=== PATIENT | female | born 1980 | race American Indian/Alaskan Native ===

== ENCOUNTER 2017-03-26 13:10 | Inpatient (IN) | payer OTHER ==
[2017-03-26 16:11] LABS: Hematocrit 45.5 % (30.3-42.9); Hemoglobin 14.3 gm/dl (10.1-14.3); Mean Corpuscular HGB Conc 31 % (30-34); Mean Corpuscular Hemoglobin 24 pg (28-32); Mean Corpuscular Volume 77 fl (79-97); Red Blood Count 5.93 M/mm3 (3.65-5.03); Red Cell Distribution Width 14.4 % (13.2-15.2)
[2017-03-26 16:13] LABS: Bacteria,Urine 2+ /HPF (Negative); Bilirubin,Urine NEG (Negative); Blood,Urine NEG (Negative); Color,Urine Yellow (Yellow); Mucus,Urine FEW /HPF; Nitrite,Urine NEG (Negative); Protein,Urine <15 mg/dL mg/dL (Negative); Urobilinogen,Urine < 2.0 mg/dL (<2.0)
[2017-03-26 16:21] LABS: BUN/Creatinine Ratio 16; Blood Urea Nitrogen 13 mg/dL (7-17); Calcium 9.4 mg/dL (8.4-10.2); Hemolysis Index 64
[2017-03-26 19:20] LABS: Basophils % (Manual) 0 % (0.0-1.8); Hypochromasia 1+; Platelet Estimate Consistent w Auto; Total Cells Counted 100
[2017-03-26 19:27] LABS: Platelet Count 182 K/mm3 (140-440)
[2017-03-27 01:59] LABS: Amorphous Crystals,Urine Few; Bilirubin,Urine NEG (Negative); Blood,Urine NEG (Negative); Color,Urine Yellow (Yellow); Mucus,Urine 1+ /HPF; Nitrite,Urine NEG (Negative); Protein,Urine <15 mg/dL mg/dL (Negative); Urobilinogen,Urine < 2.0 mg/dL (<2.0)
[2017-03-27 02:05] LABS: Amphetamine Screen,Urine PRESUMPTIVE NEGATIVE; Benzodiazepines Screen,Urine PRESUMPTIVE NEGATIVE; Cannabinoid Screen,Urine PRESUMPTIVE NEGATIVE; Cocaine Screen,Urine PRESUMPTIVE NEGATIVE; Methadone Screen,Urine PRESUMPTIVE NEGATIVE; Opiate Screen,Urine PRESUMPTIVE NEGATIVE
--- NOTE | 2017-03-27 02:08 | Cat Scan Report ---
FINAL REPORT EXAM: CT HEAD/BRAIN WO CON HISTORY: AMS TECHNIQUE: Routine axial imaging was obtained of the brain without IV contrast. FINDINGS: The ventricular system is appropriate in size and is symmetric. There is no evidence of acute stroke or hemorrhage. The basal cisterns appear normal. The visualized sinuses are clear. The mastoid air cells are well pneumatized. The calvarium appears intact. IMPRESSION: Within normal limits
[2017-03-27 02:27] LABS: Alanine Aminotransferase 28 units/L (7-56); Albumin 3.8 g/dL (3.9-5)
[2017-03-27 02:43] LABS: Bilirubin,Direct < 0.2 mg/dL (0-0.2)
--- NOTE | 2017-03-27 02:53 | Emergency Department Report ---
ED Seizure HPI - General Chief Complaint: Syncope Stated Complaint: FAINTED/LEG WEAKNESS Time Seen by Provider: 03/27/17 01:21 Source: patient, EMS Mode of arrival: Ambulatory Limitations: No Limitations - History of Present Illness Initial Comments: 36 YO female TOLD BY HER CO-WORKERS THAT SHE HAD A SEIZURE. THE SEIZURE WAS GENERALIZED MYOCLONIC IN NATURE. PT SAID SHE FELT HERSELF BEGIN TO SHAKE BUT DOES NOT REMEMBER ANYTHING ELSE. SHE HAS A H/O MIGRAINE HEADACHES A BUT NO SEIZURE HISTORY AND WS PUT ON TOPAMAX AND CLONIDINE TWO WEEKS AGO BY AN URGENT CRE DOCTOR. - Related Data Allergies Allergy/AdvReac Type Severity Reaction Status Date / Time No Known Allergies Allergy Unverified 03/26/17 14:57 ED Review of Systems ROS: Stated complaint: FAINTED/LEG WEAKNESS Other details as noted in HPI Constitutional: denies: chills, fever Eyes: denies: eye pain, eye discharge, vision change ENT: denies: ear pain, throat pain Respiratory: denies: cough, shortness of breath, wheezing Cardiovascular: denies: chest pain, palpitations Endocrine: no symptoms reported Gastrointestinal: denies: abdominal pain, nausea, diarrhea Genitourinary: denies: urgency, dysuria, discharge Musculoskeletal: denies: back pain, joint swelling, arthralgia Skin: denies: rash, lesions Neurological: headache, other (DIZZINESS). denies: weakness, paresthesias Psychiatric: denies: anxiety, depression Hematological/Lymphatic: denies: easy bleeding, easy bruising ED Past Medical Hx - Past Medical History Previous Medical History?: Yes Hx Hypertension: Yes (with ) Hx Headaches / Migraines: Yes Additional medical history: endometriosis - Surgical History Past Surgical History?: Yes Hx Cholecystectomy: Yes Additional Surgical History: Hysterectomy, Umbilical hernia repair, Left OOPHERECTOMY - Family History Family history: hypertension - Social History Smoking Status: Never Smoker Substance Use Type: Prescribed ED Physical Exam - General Limitations: No Limitations General appearance: alert, in no apparent distress - Head Head exam: Present: atraumatic, normocephalic - Eye Eye exam: Present: normal appearance, EOMI - ENT ENT exam: Present: mucous membranes moist - Neck Neck exam: Present: normal inspection - Respiratory Respiratory exam: Present: normal lung sounds bilaterally. Absent: respiratory distress, wheezes, rales, stridor - Cardiovascular Cardiovascular Exam: Present: regular rate, normal rhythm. Absent: systolic murmur, diastolic murmur, rubs, gallop - GI/Abdominal GI/Abdominal exam: Present: soft, normal bowel sounds - Rectal Rectal exam: Present: deferred - Extremities Exam Extremities exam: Present: normal inspection - Back Exam Back exam: Present: normal inspection, full ROM - Neurological Exam Neurological exam: Present: alert, oriented X3, CN II-XII intact - Psychiatric Psychiatric exam: Present: normal affect, normal mood - Skin Skin exam: Present: warm, dry, intact, normal color. Absent: rash ED Course Vital Signs 03/26/17 14:57 Temperature 98 F Pulse Rate 70 Respiratory 18 Rate Blood Pressure 132/92 O2 Sat by Pulse 100 Oximetry ED Medical Decision Making - Lab Data Result diagrams: 03/26/17 15:33 03/26/17 15:33 - Radiology Data Radiology results: report reviewed (CT HEAD:NEGATIVE FOR ACUTE) Critical care attestation.: If time is entered above; I have spent that time in minutes in the direct care of this critically ill patient, excluding procedure time. ED Disposition Clinical Impression: New onset seizure Disposition: -09 OP ADMIT IP TO THIS HOSP Is pt being admited?: Yes Does the pt Need Aspirin: No Condition: Stable Referrals: APRIL ALICEA MD [Primary Care Provider] - 3-5 Days Time of Disposition: 05:23 (DR DIEGO MONTES AND CASE REVIEWED AND SHE WILL ADMIT THE PT TO THE HOSPITAL)
[2017-03-27] MEDS ORDERED: NACL 0.9% 1000 ML 1,000 ML ONE (05:09)
[2017-03-27] MEDS ORDERED: NACL 0.9% 1000 ML 1,000 ML IV ONE (05:15)
[2017-03-27] MEDS ORDERED: KEPPRA 1,000 MG in NACL 0.9% 100 ML IV SCH ×2 (05:17→18:00)
[2017-03-27] MEDS ORDERED: KEPPRA 1,000 MG/NS 0.75% 100ML 1,000 MG/100 ML BAG IV ONE (06:00)
--- NOTE | 2017-03-27 11:21 | History and Physical Report ---
History of Present Illness Date of examination: 03/27/17 Date of admission: 03/27/17 06:50 Chief complaint: Cc New onset seizures.couple of hours ago. History of present illness: History of Present Illness: 36 y/o AAF with hx of HTN and Migraine apparently had gen seizures lasting for 30 seconds .The seizure was generalized myoclonic in nature.No tonic clonic features. Patient apparently was shaking and unresponsive.No past hx of seizures.Was recently put on Topamax for Migraines and clonidine for HTn.By urgent care physician. No fever or chills.No sob. Complaints of RLE weakness.Sudden onset.No RUE weakness. Past Medical History Previous Medical History?: Yes Hx Hypertension: Yes (with ) Hx Headaches / Migraines: Yes Additional medical history: endometriosis Surgical History Past Surgical History?: Yes Hx Cholecystectomy: Yes Additional Surgical History: Hysterectomy, Umbilical hernia repair, Left OOPHERECTOMY Family History Family history: hypertension Social History Smoking Status: Never Smoker Substance Use Type: Prescribed Review of Systems Stated complaint: FAINTED/LEG WEAKNESS Other details as noted in HPI Constitutional: denies: chills, fever Eyes: denies: eye pain, eye discharge, vision change ENT: denies: ear pain, throat pain Respiratory: denies: cough, shortness of breath, wheezing Cardiovascular: denies: chest pain, palpitations Endocrine: no symptoms reported Gastrointestinal: denies: abdominal pain, nausea, diarrhea Genitourinary: denies: urgency, dysuria, discharge Musculoskeletal: denies: back pain, joint swelling, arthralgia Skin: denies: rash, lesions Neurological: headache, other (DIZZINESS). denies: weakness, paresthesias Psychiatric: denies: anxiety, depression Hematological/Lymphatic: denies: easy bleeding, easy bruising Past History Past Medical History: hypertension, migraines Medications and Allergies Allergies Allergy/AdvReac Type Severity Reaction Status Date / Time No Known Allergies Allergy Unverified 03/26/17 14:57 Home Medications Medication Instructions Recorded Confirmed Last Taken Type Topiramate [Topamax] 25 mg PO BID 03/27/17 03/27/17 1 Day Ago History ~03/26/17 cloNIDine [Catapres] 0.2 mg PO BID 03/27/17 03/27/17 1 Day Ago History ~03/26/17 Active Meds: Active Medications Levetiracetam (Keppra 1,000 Mg/Ns 0.75% 100ml) 1,000 mg in 100 mls @ 400 mls/ hr IV Q12H NATASHA Lorazepam (Ativan) 1 mg IV Q4H PRN PRN Reason: Seizures Exam - Constitutional Vitals: Temp Pulse Resp BP Pulse Ox 98.2 F 128 H 19 167/89 97 03/27/17 07:55 03/27/17 09:41 03/27/17 09:41 03/27/17 09:41 03/27/17 09:41 General appearance: Present: no acute distress, well-nourished - EENT Eyes: Present: PERRL ENT: hearing intact, clear oral mucosa - Neck Neck: Present: supple, normal ROM - Respiratory Respiratory effort: normal Respiratory: bilateral: CTA - Cardiovascular Heart rate: 70 Rhythm: regular Heart Sounds: Present: S1 & S2. Absent: rub, click - Extremities Extremities: no ischemia, pulses intact, pulses symmetrical, No edema Peripheral Pulses: within normal limits - Abdominal General gastrointestinal: Present: soft, non-tender, non-distended, normal bowel sounds Female genitourinary: Present: normal - Rectal Rectal Exam: deferred - Integumentary Integumentary: Present: clear, warm, dry - Musculoskeletal Musculoskeletal: gait normal, strength equal bilaterally - Psychiatric Psychiatric: appropriate mood/affect, intact judgment & insight - Neurologic Neurologic: CNII-XII intact, moves all extremities - Allied Health Allied health notes reviewed: nursing, case management Results - Labs CBC & Chem 7: 03/28/17 07:40 03/28/17 07:40 Labs: Laboratory Last Values WBC 14.8 K/mm3 (4.5-11.0) H 03/26/17 15:33 RBC 5.93 M/mm3 (3.65-5.03) H 03/26/17 15:33 Hgb 14.3 gm/dl (10.1-14.3) 03/26/17 15:33 Hct 45.5 % (30.3-42.9) H 03/26/17 15:33 MCV 77 fl (79-97) L 03/26/17 15:33 MCH 24 pg (28-32) L 03/26/17 15:33 MCHC 31 % (30-34) 03/26/17 15:33 RDW 14.4 % (13.2-15.2) 03/26/17 15:33 Plt Count 182 K/mm3 (140-440) 03/26/17 15:33 Add Manual Diff Complete 03/26/17 15:33 Total Counted 100 03/26/17 15:33 Seg Neuts % (Manual) 71.0 % (40.0-70.0) H 03/26/17 15:33 Band Neutrophils % 0 % 03/26/17 15:33 Lymphocytes % (Manual) 23.0 % (13.4-35.0) 03/26/17 15:33 Reactive Lymphs % (Man) 0 % 03/26/17 15:33 Monocytes % (Manual) 4.0 % (0.0-7.3) 03/26/17 15:33 Eosinophils % (Manual) 2.0 % (0.0-4.3) 03/26/17 15:33 Basophils % (Manual) 0 % (0.0-1.8) 03/26/17 15:33 Metamyelocytes % 0 % 03/26/17 15:33 Myelocytes % 0 % 03/26/17 15:33 Promyelocytes % 0 % 03/26/17 15:33 Blast Cells % 0 % 03/26/17 15:33 Nucleated RBC % Not Reportable 03/26/17 15:33 Seg Neutrophils # Man 0.0 K/mm3 (1.8-7.7) L 03/26/17 15:33 Band Neutrophils # 0.0 K/mm3 03/26/17 15:33 Lymphocytes # (Manual) 0.0 K/mm3 (1.2-5.4) L 03/26/17 15:33 Abs React Lymphs (Man) 0.0 K/mm3 03/26/17 15:33 Monocytes # (Manual) 0.0 K/mm3 (0.0-0.8) 03/26/17 15:33 Eosinophils # (Manual) 0.0 K/mm3 (0.0-0.4) 03/26/17 15:33 Basophils # (Manual) 0.0 K/mm3 (0.0-0.1) 03/26/17 15:33 Metamyelocytes # 0.0 K/mm3 03/26/17 15:33 Myelocytes # 0.0 K/mm3 03/26/17 15:33 Promyelocytes # 0.0 K/mm3 03/26/17 15:33 Blast Cells # 0.0 K/mm3 03/26/17 15:33 WBC Morphology Not Reportable 03/26/17 15:33 Hypersegmented Neuts Not Reportable 03/26/17 15:33 Hyposegmented Neuts Not Reportable 03/26/17 15:33 Hypogranular Neuts Not Reportable 03/26/17 15:33 Smudge Cells Not Reportable 03/26/17 15:33 Toxic Granulation Not Reportable 03/26/17 15:33 Toxic Vacuolation Not Reportable 03/26/17 15:33 Dohle Bodies Not Reportable 03/26/17 15:33 Pelger-Huet Anomaly Not Reportable 03/26/17 15:33 Andrew Rods Not Reportable 03/26/17 15:33 Platelet Estimate Consistent w auto 03/26/17 15:33 Clumped Platelets Not Reportable 03/26/17 15:33 Plt Clumps, EDTA Not Reportable 03/26/17 15:33 Large Platelets Not Reportable 03/26/17 15:33 Giant Platelets Not Reportable 03/26/17 15:33 Platelet Satelliting Not Reportable 03/26/17 15:33 Plt Morphology Comment Not Reportable 03/26/17 15:33 RBC Morphology Not Reportable 03/26/17 15:33 Dimorphic RBCs Not Reportable 03/26/17 15:33 Polychromasia Not Reportable 03/26/17 15:33 Hypochromasia 1+ 03/26/17 15:33 Poikilocytosis Not Reportable 03/26/17 15:33 Anisocytosis Not Reportable 03/26/17 15:33 Microcytosis Not Reportable 03/26/17 15:33 Macrocytosis Not Reportable 03/26/17 15:33 Spherocytes Not Reportable 03/26/17 15:33 Pappenheimer Bodies Not Reportable 03/26/17 15:33 Sickle Cells Not Reportable 03/26/17 15:33 Target Cells Not Reportable 03/26/17 15:33 Tear Drop Cells Not Reportable 03/26/17 15:33 Ovalocytes Not Reportable 03/26/17 15:33 Helmet Cells Not Reportable 01/03/18 15:33 [place] Bodies Not Reportable 03/26/17 15:33 [place] Rings Not Reportable 03/26/17 15:33 Roxanna Cells Not Reportable 03/26/17 15:33 Bite Cells Not Reportable 03/26/17 15:33 Crenated Cell Not Reportable 03/26/17 15:33 Elliptocytes Not Reportable 03/26/17 15:33 Acanthocytes (Spur) Not Reportable 03/26/17 15:33 Rouleaux Not Reportable 03/26/17 15:33 Hemoglobin C Crystals Not Reportable 03/26/17 15:33 Schistocytes Not Reportable 03/26/17 15:33 Malaria parasites Not Reportable 03/26/17 15:33 Ricki Bodies Not Reportable 03/26/17 15:33 Hem Pathologist Commnt No 03/26/17 15:33 Sodium 137 mmol/L (137-145) 03/26/17 15:33 Potassium 4.8 mmol/L (3.6-5.0) 03/26/17 15:33 Chloride 102.5 mmol/L (98-107) 03/26/17 15:33 Carbon Dioxide 18 mmol/L (22-30) L 03/26/17 15:33 Anion Gap 21 mmol/L 03/26/17 15:33 BUN 13 mg/dL (7-17) 03/26/17 15:33 Creatinine 0.8 mg/dL (0.7-1.2) 03/26/17 15:33 Estimated GFR > 60 ml/min 03/26/17 15:33 BUN/Creatinine Ratio 16 % 03/26/17 15:33 Glucose 98 mg/dL (65-100) 03/26/17 15:33 Calcium 9.4 mg/dL (8.4-10.2) 03/26/17 15:33 Total Bilirubin 0.50 mg/dL (0.1-1.2) 03/27/17 01:45 Direct Bilirubin < 0.2 mg/dL (0-0.2) 03/27/17 01:45 Indirect Bilirubin 0.3 mg/dL 03/27/17 01:45 AST 18 units/L (5-40) 03/27/17 01:45 ALT 28 units/L (7-56) 03/27/17 01:45 Alkaline Phosphatase 116 units/L (35-129) 03/27/17 01:45 Ammonia 51.0 umol/L (25-60) 03/27/17 01:45 Troponin T < 0.010 ng/mL (0.00-0.029) 03/26/17 15:33 Total Protein 8.1 g/dL (6.3-8.2) 03/27/17 01:45 Albumin 3.8 g/dL (3.9-5) L 03/27/17 01:45 Albumin/Globulin Ratio 0.9 % 03/27/17 01:45 Urine Color Yellow (Yellow) 03/27/17 01:44 Urine Turbidity Clear (Clear) 03/27/17 01:44 Urine pH 5.0 (5.0-7.0) 03/27/17 01:44 Ur Specific [place] 1.023 (1.003-1.030) 03/27/17 01:44 Urine Protein <15 mg/dl mg/dL (Negative) 03/27/17 01:44 Urine Glucose (UA) Neg mg/dL (Negative) 03/27/17 01:44 Urine Ketones Neg mg/dL (Negative) 03/27/17 01:44 Urine Blood Neg (Negative) 03/27/17 01:44 Urine Nitrite Neg (Negative) 03/27/17 01:44 Urine Bilirubin Neg (Negative) 03/27/17 01:44 Urine Urobilinogen < 2.0 mg/dL (<2.0) 03/27/17 01:44 Ur Leukocyte Esterase Neg (Negative) 03/27/17 01:44 Urine WBC (Auto) 4.0 /HPF (0.0-6.0) 03/27/17 01:44 Urine RBC (Auto) 1.0 /HPF (0.0-6.0) 03/27/17 01:44 U Epithel Cells (Auto) 4.0 /HPF (0-13.0) 03/27/17 01:44 Urine Bacteria (Auto) 2+ /HPF (Negative) 03/26/17 15:35 Amorphous Crystals Few 03/27/17 01:44 Urine Mucus 1+ /HPF 03/27/17 01:44 Urine Opiates Screen Presumptive negative 03/27/17 01:44 Urine Methadone Screen Presumptive negative 03/27/17 01:44 Ur Barbiturates Screen Presumptive negative 03/27/17 01:44 Ur Phencyclidine Scrn Presumptive negative 03/27/17 01:44 Ur Amphetamines Screen Presumptive negative 03/27/17 01:44 U Benzodiazepines Scrn Presumptive negative 03/27/17 01:44 Urine Cocaine Screen Presumptive negative 03/27/17 01:44 U Marijuana (THC) Screen Presumptive negative 03/27/17 01:44 Drugs of Abuse Note Disclamer 03/27/17 01:44 - Imaging and Cardiology EKG: report reviewed (NSR non specific ST t wave changes) Assessment and Plan Advance Directives: Yes (Full code) VTE prophylaxis?: Chemical Plan of care discussed with patient/family: Yes - Patient Problems (1) New onset seizure Current Visit: Yes Status: Acute Plan to address problem: Sterted on IV keppra Will transition to Po Keppra EEG ordered Neuro consult ordered (2) Weakness of lower extremity Current Visit: Yes Status: Acute Qualifiers: Laterality: right Qualified Code(s): R29.898 - Other symptoms and signs involving the musculoskeletal system Plan to address problem: Stroke w/u initiated (3) HTN (hypertension) Current Visit: Yes Status: Chronic Qualifiers: Hypertension type: essential hypertension Qualified Code(s): I10 - Essential (primary) hypertension Plan to address problem: cont clonidine (4) Migraine Current Visit: Yes Status: Inactive Qualifiers: Intractability: not intractable Plan to address problem: Cont Topamax (5) DVT prophylaxis Current Visit: Yes Status: Acute Plan to address problem: On Lovenox
[2017-03-27] MEDS ORDERED: MILK OF MAGNESIA PO PRN (11:22)
[2017-03-27] MEDS ORDERED: DULCOLAX PR PRN (11:22)
[2017-03-27] MEDS ORDERED: TYLENOL PO PRN (11:22)
[2017-03-27] MEDS: PEPCID PO SCH ×2 (13:42→22:34)
[2017-03-27] MEDS: D5NS 1,000 ML IV SCH (13:43)
[2017-03-27] MEDS: ATIVAN IV PRN ×2 (13:45→20:27)
[2017-03-27] MEDS: KEPPRA 1,000 MG/NS 0.75% 100ML 1,000 MG/100 ML BAG IV SCH (17:27)
--- NOTE | 2017-03-27 17:49 | Consultation ---
History of Present Illness Consult date: 03/27/17 History of present illness: I have carefully reviewed the CT odf the head and it is normal plan to check EEG agree with use of keppra interesting hx that she had severe leg weakness ( ? etiology) spoke to family and went over all rec's for the patient Medications and Allergies Allergies Allergy/AdvReac Type Severity Reaction Status Date / Time No Known Allergies Allergy Unverified 03/26/17 14:57 Home Medications Medication Instructions Recorded Confirmed Last Taken Type Topiramate [Topamax] 25 mg PO BID 03/27/17 03/27/17 1 Day Ago History ~03/26/17 cloNIDine [Catapres] 0.2 mg PO BID 03/27/17 03/27/17 1 Day Ago History ~03/26/17 Active Meds: Active Medications Acetaminophen (Tylenol) 650 mg PO Q4H PRN PRN Reason: Pain MILD(1-3)/Fever >100.5/GILBERT Bisacodyl (Dulcolax) 10 mg CO QDAY PRN PRN Reason: Constipation unrelieved by MOM Famotidine (Pepcid) 20 mg PO BID [facility] Last Admin: 03/27/17 13:42 Dose: 20 mg Levetiracetam (Keppra 1,000 Mg/Ns 0.75% 100ml) 1,000 mg in 100 mls @ 400 mls/ hr IV Q12H [facility] Last Admin: 03/27/17 17:27 Dose: 400 mls/hr Dextrose/Sodium Chloride (D5ns) 1,000 mls @ 100 mls/hr IV DIRECT [facility] Last Admin: 03/27/17 13:43 Dose: 100 mls/hr Lorazepam (Ativan) 1 mg IV Q4H PRN PRN Reason: Seizures Last Admin: 03/27/17 13:45 Dose: 1 mg Magnesium Hydroxide (Milk Of Magnesia) 30 ml PO Q4H PRN PRN Reason: Constipation Morphine Sulfate (Morphine) 4 mg IV Q4H PRN PRN Reason: Pain , Severe (7-10) Ondansetron HCl (Zofran) 4 mg IV Q8H PRN PRN Reason: N/V unrelieved by Reglan Oxycodone/Acetaminophen (Percocet 5/325) 1 tab PO Q6H PRN PRN Reason: Pain, Moderate (4-6) Zolpidem Tartrate (Ambien) 5 mg PO QHS PRN PRN Reason: Insomnia Physical Examination - Vital Signs Vital Signs: Vital Signs Temp Pulse Resp BP Pulse Ox 98 F 70 18 132/92 100 03/26/17 14:57 03/26/17 14:57 03/26/17 14:57 03/26/17 14:57 03/26/17 14:57 Results - Laboratory Findings CBC and BMP: 03/26/17 15:33 03/26/17 15:33 Abnormal Lab Findings: Abnormal Labs 03/26/17 03/26/17 03/27/17 15:33 15:33 01:45 WBC 14.8 H RBC 5.93 H Hct 45.5 H MCV 77 L MCH 24 L Seg Neuts % (Manual) 71.0 H Seg Neutrophils # Man 0.0 L Lymphocytes # (Manual) 0.0 L Carbon Dioxide 18 L Albumin 3.8 L
[2017-03-27 18:46] LABS: Magnesium 1.8 mg/dL (1.7-2.3)
[2017-03-27] MEDS: AMBIEN PO PRN (22:38)
[2017-03-27] MEDS ORDERED: KEPPRA 500 MG/NS 0.82% 100 ML 500 MG/100 ML BAG IV ONE (23:30)
[2017-03-28] MEDS: D5NS 1,000 ML IV SCH ×2 (00:44→20:34)
--- NOTE | 2017-03-28 02:06 | Consultation ---
HISTORY OF PRESENT ILLNESS: This is a 36-year-old black female who presents to [facility] with a new onset of seizures. She had at least for 2-3 weeks of difficulty sleeping. She would wake up at night, could not get a full night sleep, was taking Topamax during this period for her migraine headaches, but this was not having very much effect on her migraines at all. She said it is still be very debilitating and would not go away. She has also been having according to family members weakness of her legs, difficulty walking, and tremulousness when she attempts to stand up and move about. She denies any prior history of seizures, head injury, trauma. She has not had an extensive workup for migraine headaches such as MRI scan since admission, she has had no further seizures, but she is on levetiracetam 1000 mg IV b.i.d. I reviewed her labs. They were all normal. I reviewed her CT scan of the head. It is entirely unremarkable. PLAN: At this point to get an MRI, EEG. I agree with using [facility]. I advised the patient with weakness in her legs is simply should be worked out. She could have a myopathy, could have some other electrolyte imbalance, vitamin deficiency. This will be further looked into as to etiology. It is remotely possible of course that she has a condition like multiple sclerosis, which is responsible for all of the above symptoms. JOB# [id number] KIN/TATO
[2017-03-28] MEDS: PERCOCET 5/325 PO PRN ×2 (05:31→23:06)
[2017-03-28] MEDS: KEPPRA 1,000 MG/NS 0.75% 100ML 1,000 MG/100 ML BAG IV SCH ×2 (05:31→18:16)
[2017-03-28 09:03] LABS: Eosinophils # (Auto) 0.2 K/mm3 (0.0-0.4); Eosinophils % (Auto) 2.4 % (0.0-4.3); Monocytes # (Auto) 0.6 K/mm3 (0.0-0.8); Monocytes % (Auto) 6.1 % (0.0-7.3)
[2017-03-28 09:30] LABS: Alanine Aminotransferase 19 units/L (7-56); Albumin 3.3 g/dL (3.9-5); BUN/Creatinine Ratio 13; Blood Urea Nitrogen 10 mg/dL (7-17); Calcium 8.1 mg/dL (8.4-10.2); Hemolysis Index 3
[2017-03-28 09:40] LABS: Hematocrit 38.6 % (30.3-42.9)
[2017-03-28 09:42] LABS: Lymphocytes % (Auto) 30.5 % (13.4-35.0); Mean Corpuscular Volume 77 fl (79-97)
[2017-03-28 09:43] LABS: Basophils % (Auto) 0.5 % (0.0-1.8); Lymphocytes # (Auto) 2.7 K/mm3 (1.2-5.4); Mean Corpuscular HGB Conc 31 % (30-34); Mean Corpuscular Hemoglobin 24 pg (28-32); Red Cell Distribution Width 14.5 % (13.2-15.2)
[2017-03-28] MEDS: PEPCID PO SCH ×2 (10:25→23:02)
[2017-03-28 10:26] LABS: Platelet Count 232 K/mm3 (140-440)
[2017-03-28] MEDS: ATIVAN IV PRN (12:26)
--- NOTE | 2017-03-28 15:30 | Progress Note ---
Assessment and Plan - Patient Problems (1) New onset seizure Current Visit: Yes Status: Acute Plan to address problem: Sterted on IV keppra Will transition to Po Keppra EEG ordered Neuro consult ordered (2) Weakness of lower extremity Current Visit: Yes Status: Acute Qualifiers: Laterality: right Qualified Code(s): R29.898 - Other symptoms and signs involving the musculoskeletal system Plan to address problem: Stroke w/u initiated (3) HTN (hypertension) Current Visit: Yes Status: Chronic Qualifiers: Hypertension type: essential hypertension Qualified Code(s): I10 - Essential (primary) hypertension Plan to address problem: cont clonidine (4) Migraine Current Visit: Yes Status: Inactive Qualifiers: Intractability: not intractable Plan to address problem: Cont Topamax (5) DVT prophylaxis Current Visit: Yes Status: Acute Plan to address problem: On Lovenox Subjective Date of service: 03/28/17 Principal diagnosis: New onset seizures Interval history: Doing well .No seizures.No Headache.RLE weakness persistent. Objective - Constitutional Vitals: Vital Signs - 12hr 03/28/17 03/28/17 07:30 12:26 Temperature 98.3 F 98.3 F Pulse Rate 73 92 H Respiratory 22 20 Rate Blood Pressure 130/87 149/70 O2 Sat by Pulse 100 100 Oximetry General appearance: Present: no acute distress, well-nourished - EENT Eyes: PERRL, EOM intact ENT: hearing intact, clear oral mucosa Ears: bilateral: normal - Neck Neck: supple, normal ROM - Respiratory Respiratory effort: normal Respiratory: bilateral: CTA - Breasts Breasts: normal - Cardiovascular Heart rate: 70 Rhythm: regular Heart Sounds: Present: S1 & S2. Absent: gallop, rub Extremities: pulses intact, No edema, normal color, Full ROM - Gastrointestinal General gastrointestinal: Present: soft, non-tender, non-distended, normal bowel sounds Rectal Exam: deferred - Genitourinary Female genitourinary: normal - Integumentary Integumentary: clear, warm, dry - Musculoskeletal Musculoskeletal: 1, strength equal bilaterally - Neurologic Neurologic: CNII-XII intact, focal deficits, moves all extremities - Psychiatric Psychiatric: memory intact, appropriate mood/affect, intact judgment & insight - Allied health notes Allied health notes reviewed: nursing, case management - Labs CBC & Chem 7: 03/28/17 07:40 03/28/17 07:40 Labs: Abnormal lab results 03/28/17 03/28/17 Range/Units 07:40 07:40 MCV 77 L (79-97) fl MCH 24 L (28-32) pg Chloride 108.3 H (98-107) mmol/L Carbon Dioxide 19 L (22-30) mmol/L Glucose 109 H (65-100) mg/dL Calcium 8.1 L (8.4-10.2) mg/dL Albumin 3.3 L (3.9-5) g/dL
[2017-03-28] MEDS ORDERED: SODIUM CHLORIDE FLUSH SYRINGE 10 ML IV PRN (15:31)
[2017-03-28] MEDS ORDERED: APRESOLINE IV PRN (15:31)
[2017-03-29] MEDS: KEPPRA PO SCH ×2 (05:57→18:32)
[2017-03-29] MEDS: PERCOCET 5/325 PO PRN ×2 (05:58→22:02)
[2017-03-29 06:39] LABS: Chol/HDL Ratio 2.94 %
[2017-03-29] MEDS: D5NS 1,000 ML IV SCH (09:42)
[2017-03-29] MEDS: PEPCID PO SCH (09:43)
--- NOTE | 2017-03-29 11:50 | Progress Note ---
Assessment and Plan New onset seizures Rule out complex migraine versus true seizures Continue Keppra Await EEG results Continue management per neurology recommendations History of migraines: She denies any headaches at this time Weakness in the lower extremities: Unclear etiology. Continue per neurology recommendations Hypertension: Fair Morbid obesity: Weight loss and nutrition counseling done Subjective Date of service: 03/29/17 Principal diagnosis: New onset seizures Interval history: Patient is awake and alert No apparent distress She states she was diagnosed with migraines at [facility] 3 weeks ago and was supposed to see a neurologist next month Complains of weakness in the legs for the past 1 month Associated with dizziness blurred vision Denies any falls States she had EEG yesterday Objective - Constitutional Vitals: Vital Signs - 12hr 03/29/17 03/29/17 05:58 07:43 Temperature 98.2 F Pulse Rate 71 Respiratory 18 18 Rate Blood Pressure 152/94 O2 Sat by Pulse 97 Oximetry General appearance: Present: no acute distress - EENT Eyes: PERRL, EOM intact ENT: hearing intact, clear oral mucosa - Neck Neck: supple, normal ROM, no masses or JVD - Respiratory Respiratory effort: normal Respiratory: bilateral: CTA - Cardiovascular Rhythm: regular Heart Sounds: Present: S1 & S2 Extremities: No edema - Gastrointestinal General gastrointestinal: Present: soft, non-tender. Absent: hepatomegaly, splenomegaly Rectal Exam: deferred - Integumentary Integumentary: clear - Musculoskeletal Musculoskeletal: strength equal bilaterally - Neurologic Neurologic: CNII-XII intact - Psychiatric Psychiatric: appropriate mood/affect - Labs CBC & Chem 7: 03/28/17 07:40 03/28/17 07:40 Labs: Abnormal lab results 03/29/17 Range/Units 05:34 HDL Cholesterol 37 L (40-59) mg/dL
--- NOTE | 2017-03-29 12:09 | Magnetic Resonance Report ---
MRI scan of brain: History: Stroke. Technique: Multiplanar multisequence images were obtained without contrast injection. Findings: No evidence of restricted diffusion. Ventricles are normal in size and midline in location. No evidence of acute ischemia, hemorrhage or mass. No extra-axial fluid collection. Normal brainstem and cerebellum. Normal sinuses and mastoid air cells. Impression: No acute intracranial abnormality.
--- NOTE | 2017-03-29 12:09 | Consultation ---
History of Present Illness Consult date: 03/29/17 History of present illness: CPK is normal and magnesium is normal at 1.8 the MRI to my read isWNL's rec seizure treatment with keppra and stop the topamax I believe leg weakness is duiabetic as the A1 C is elevated doubt neuropathy cause of the leg symptoms Past History Past Medical History: hypertension, migraines Medications and Allergies Allergies Allergy/AdvReac Type Severity Reaction Status Date / Time No Known Allergies Allergy Unverified 03/26/17 14:57 Home Medications Medication Instructions Recorded Confirmed Last Taken Type Topiramate [Topamax] 25 mg PO BID 03/27/17 03/27/17 1 Day Ago History ~03/26/17 cloNIDine [Catapres] 0.2 mg PO BID 03/27/17 03/27/17 1 Day Ago History ~03/26/17 Active Meds: Active Medications Acetaminophen (Tylenol) 650 mg PO Q4H PRN PRN Reason: Pain MILD(1-3)/Fever >100.5/GILBERT Last Admin: 03/28/17 02:15 Dose: 650 mg Bisacodyl (Dulcolax) 10 mg MO QDAY PRN PRN Reason: Constipation unrelieved by MOM Famotidine (Pepcid) 20 mg PO BID [facility] Last Admin: 03/29/17 09:43 Dose: 20 mg Hydralazine HCl (Apresoline) 5 mg IV Q6H PRN PRN Reason: Keep SBP between 160-185 mm Hg Levetiracetam (Keppra) 750 mg PO Q12H [facility] Last Admin: 03/29/17 05:57 Dose: 750 mg Lorazepam (Ativan) 1 mg IV Q4H PRN PRN Reason: Seizures Last Admin: 03/28/17 12:26 Dose: 1 mg Magnesium Hydroxide (Milk Of Magnesia) 30 ml PO Q4H PRN PRN Reason: Constipation Morphine Sulfate (Morphine) 4 mg IV Q4H PRN PRN Reason: Pain , Severe (7-10) Ondansetron HCl (Zofran) 4 mg IV Q8H PRN PRN Reason: N/V unrelieved by Reglan Oxycodone/Acetaminophen (Percocet 5/325) 1 tab PO Q6H PRN PRN Reason: Pain, Moderate (4-6) Last Admin: 03/29/17 05:58 Dose: 1 tab Sodium Chloride (Sodium Chloride Flush Syringe 10 Ml) 10 ml IV PRN PRN PRN Reason: LINE FLUSH Zolpidem Tartrate (Ambien) 5 mg PO QHS PRN PRN Reason: Insomnia Last Admin: 03/27/17 22:38 Dose: 5 mg Physical Examination - Vital Signs Vital Signs: Vital Signs Temp Pulse Resp BP Pulse Ox 98 F 70 18 132/92 100 03/26/17 14:57 03/26/17 14:57 03/26/17 14:57 03/26/17 14:57 03/26/17 14:57 Results - Laboratory Findings CBC and BMP: 03/28/17 07:40 03/28/17 07:40 Abnormal Lab Findings: Abnormal Labs 03/26/17 03/26/17 03/27/17 15:33 15:33 01:45 WBC 14.8 H RBC 5.93 H Hct 45.5 H MCV 77 L MCH 24 L Seg Neuts % (Manual) 71.0 H Seg Neutrophils # Man 0.0 L Lymphocytes # (Manual) 0.0 L Chloride Carbon Dioxide 18 L Glucose Calcium Albumin 3.8 L HDL Cholesterol 03/28/17 03/28/17 03/29/17 07:40 07:40 05:34 WBC RBC Hct MCV 77 L MCH 24 L Seg Neuts % (Manual) Seg Neutrophils # Man Lymphocytes # (Manual) Chloride 108.3 H Carbon Dioxide 19 L Glucose 109 H Calcium 8.1 L Albumin 3.3 L HDL Cholesterol 37 L
--- NOTE | 2017-03-29 12:12 | Magnetic Resonance Report ---
MRA of the brain with 3-D image post processing: History: Stroke area Findings: The vessels of [place] of [place] are widely patent. No stenosis, dissection or aneurysm. Codominant vertebral arteries and basilar artery. origin of right and left posterior cerebral arteries. Impression: No evidence of stenosis or occlusion.
[2017-03-30] MEDS: AMBIEN PO PRN (00:42)
[2017-03-30] MEDS: PEPCID PO SCH ×3 (00:43→21:33)
[2017-03-30] MEDS: KEPPRA PO SCH ×2 (06:47→17:28)
--- NOTE | 2017-03-30 10:50 | Progress Note ---
Assessment and Plan New onset seizures Rule out complex migraine versus true seizures versus functional disorder Continue Keppra Await EEG results Continue management per neurology recommendations History of migraines: Continue Percocet as needed Weakness in the lower extremities: Unclear etiology. Continue per neurology recommendations Hypertension: Fair Morbid obesity: Weight loss and nutrition counseling done Subjective Date of service: 03/30/17 Principal diagnosis: New onset seizures Interval history: Patient complains of diffuse headaches and blurred vision States she doesn't feel good Neurology note reviewed Objective - Constitutional Vitals: Vital Signs - 12hr 03/30/17 07:43 Temperature 98.0 F Pulse Rate 102 H Respiratory 20 Rate Blood Pressure 139/87 O2 Sat by Pulse 97 Oximetry General appearance: Present: no acute distress, well-nourished, obese - EENT Eyes: PERRL, EOM intact ENT: hearing intact, clear oral mucosa - Neck Neck: supple, normal ROM - Respiratory Respiratory effort: normal Respiratory: bilateral: CTA - Cardiovascular Rhythm: regular Heart Sounds: Present: S1 & S2 Extremities: No edema - Gastrointestinal General gastrointestinal: Present: soft, non-tender. Absent: hepatomegaly, splenomegaly - Musculoskeletal Musculoskeletal: strength equal bilaterally - Labs CBC & Chem 7: 03/28/17 07:40 03/28/17 07:40
[2017-03-30] MEDS: MORPHINE IV PRN ×3 (11:09→21:32)
[2017-03-30] MEDS: ZOFRAN IV PRN (21:32)
[2017-03-31] MEDS: ZOFRAN IV PRN (04:49)
[2017-03-31] MEDS: MORPHINE IV PRN ×2 (04:49→14:25)
[2017-03-31] MEDS: KEPPRA PO SCH ×2 (05:28→18:11)
[2017-03-31] MEDS: PEPCID PO SCH (09:44)
--- NOTE | 2017-03-31 10:49 | Discharge Summary ---
Providers - Providers Date of Admission: 03/27/17 06:50 Date of discharge: 03/31/17 Attending physician: HOMER MATHIS 03/27/17 14:36 Consult to Physician [CONS] Routine Consulting Provider: VIC ORR Reason For Exam: New onset seizures Place consult to:: DR. ORR Notified:: OFFICE Phone number called:: [phone] Was contact made?: Yes If yes, spoke with:: MEHREEN Time called:: 14:40 Comment:: SARA NOTIFIED Physical Therapy Evaluation and Treat [CONS] Routine Comment: Reason For Exam: debility 03/28/17 15:31 Occupational Therapy Evaluate and Treat [CONS] Routine Comment: Reason For Exam: Neuro deficits Physical Therapy Evaluation and Treat [CONS] Routine Comment: Reason For Exam: Neuro deficits Primary care physician: APRIL ALICEA Hospitalization Condition: Stable Hospital course: Discharge Diagnosis and management: /New onset seizures Rule out complex migraine versus true seizures versus functional disorder Continue Keppra No seizure on EEG Continue management per neurology recommendations /History of migraines: Continue Percocet as needed /Weakness in the lower extremities: Unclear etiology. Continue per neurology recommendations /Hypertension: Fair /Morbid obesity: Weight loss and nutrition counseling done Disposition: DC-01 TO HOME OR SELFCARE Time spent for discharge: 32 minutes Core Measure Documentation - Palliative Care Palliative Care/ Comfort Measures: Not Applicable - Core Measures Any of the following diagnoses?: none Exam - Constitutional Vitals: Temp Pulse Resp BP Pulse Ox 98.4 F 74 16 125/80 98 03/31/17 07:23 03/31/17 07:23 03/31/17 07:23 03/31/17 07:23 03/31/17 07:23 General appearance: Present: no acute distress, well-nourished - EENT Eyes: Present: PERRL ENT: hearing intact, clear oral mucosa - Neck Neck: Present: supple, normal ROM - Respiratory Respiratory effort: normal Respiratory: bilateral: CTA - Cardiovascular Heart Sounds: Present: S1 & S2. Absent: rub, click - Extremities Extremities: pulses symmetrical, No edema Peripheral Pulses: within normal limits - Abdominal General gastrointestinal: Present: soft, non-tender, non-distended, normal bowel sounds - Integumentary Integumentary: Present: clear, warm, dry - Musculoskeletal Musculoskeletal: gait normal, strength equal bilaterally - Psychiatric Psychiatric: appropriate mood/affect, intact judgment & insight - Neurologic Neurologic: CNII-XII intact, moves all extremities Plan Activity: advance as tolerated Weight Bearing Status: Weight Bear as Tolerated Diet: low fat, low salt Additional Instructions: f/u with neurology outpt in one to two weeks Follow up with: APRIL ALICEA MD [Primary Care Provider] - 3-5 Days Forms: Work/School Release Form Prescriptions: levETIRAcetam [Keppra TAB] 750 mg PO Q12H #60 tablet
[2017-03-31 15:42] VITALS: BP 129/80
--- NOTE | 2017-04-06 14:43 | Vascular Lab Report ---
CAROTID DUPLEX STUDY: RIGHT PSVEDV CCA [id number] CCA DIST:[id number] ICA PROX:4214 ICA MID:[id number] ICA DIST:6024 ECA: [id number] VERT: 55 20 LEFT PSVEDV CCA PROX:9617 CCA DIST:8828 ICA PROX:6116 ICA MID:8434 ICA DIST:8226 ECA: [id number] VERT: 53 15 REASON FOR EXAM: Stroke. COMMENTS ON THE RIGHT: Doppler frequency analysis is consistent with 1 to 15 percent diameter reduction of the internal carotid artery. No plaque is seen. The common carotid artery is patent. The external carotid artery is patent. The vertebral artery has antegrade flow. COMMENTS ON THE LEFT: Doppler frequency analysis is consistent with 1 to 15 percent diameter reduction of the internal carotid artery. No plaque is seen. The internal carotid is tortuous. The common carotid artery is patent. The external carotid artery is patent. The vertebral artery has antegrade flow. IMPRESSION: Less than 50% diameter reduction in the internal carotid arteries bilaterally.
== END 2017-03-31 18:25 | disposition home or self-care (01) | DRG 101 ==
LOC: ED 13:10 → 3A 03-27 06:50
PROVIDERS: ADMIT Internal Medicine; ATTEND Internal Medicine
DX: R56.9 Unspecified convulsions (principal); G43.909 Migraine, unspecified, not intractable, without status migrainosus; E66.01 Morbid (severe) obesity due to excess calories; R53.1 Weakness; Z90.710 Acquired absence of both cervix and uterus; Z68.41 Body mass index [BMI] 40.0-44.9, adult; Z90.721 Acquired absence of ovaries, unilateral; Z82.49 Family history of ischemic heart disease and other diseases of the circulatory system; Z79.899 Other long term (current) drug therapy; Z71.3 Dietary counseling and surveillance
CPT/HCPCS: 36415; 70450; 70544; 70551; 80048; 80053; 80061; 80074; 80307; 81001; 82140; 82550; 82607; 83036; 83735; 84484; 85007; 85025; 93005; 93010; 93306; 93880; 95819; 96365; J0360; J1953; J2060; J2270; J2405; J7030; J7042